=== PATIENT | female | born 1950 | race Caucasian/White ===

== ENCOUNTER 2018-12-21 17:46 | Emergency (ER) | payer SELFPAY ==
[2018-12-21] MEDS ORDERED: Ondansetron PF 4 MG/2 ML Vial ONE (18:08)
[2018-12-21] MEDS ORDERED: Morphine 4 MG/ML VIAL ONE (18:08)
[2018-12-21] MEDS ORDERED: Sodium Chloride 0.9% 1,000 ML ONE (18:08)
[2018-12-21 18:46] LABS: #Basophils 0.1 thou/uL (0.0-0.2); #Eosinphils 0.2 thou/uL (0.0-0.7); #Monocytes 0.7 thou/uL (0.11-0.59); #Neutrophils 7.6 thou/uL (1.40-6.50); %Basophils 1.1 % (0.0-1.0); %Eosinophils 2.1 % (0.0-10.0); %Lymphocytes 18.7 % (21.0-51.0); %Monocytes 6.5 % (0.0-10.0); %Neutrophils 71.6 % (42.0-75.0); Mean Corpuscular HGB CONC 32.9 g/dL (32.0-36.0); Mean Corpuscular Hemoglobin 28.4 pg (27.0-31.0); Mean Corpuscular Volume 86.3 fL (78.0-98.0); Mean Platelet Volume 6.5 fL (7.4-10.4); Platelet Count 364 thou/uL (130-400); RBC Distribution Width 11.5 % (11.5-14.5); Red Blood Cell (RBC) Count 4.57 mill/uL (4.20-5.40); White Blood Cell (WBC) Count 10.6 thou/uL (4.8-10.8)
--- NOTE | 2018-12-21 18:46 | CT ---
CT of abdomen and pelvis: 12/21/2018 COMPARISON: None HISTORY: Right upper quadrant pain TECHNIQUE: Axial CT imaging through abdomen and pelvis without contrast. Coronal reformatted imaging obtained. FINDINGS: Lack of contrast limits assessment of the viscera, bowel, vascular structures, and for lymp hadenopathy. The imaged lung bases appear unremarkable with no free intraperitoneal air or fluid seen. Limited assessment of the liver, spleen, gallbladder, pancreas, and adrenal glands unremarkable. Left kidney unremarkable, with no evidence for obstructive uropathy on the left. Urinary bladder is d ecompressed and thus, not well assessed. There is hydronephrosis and nephromegaly on the right. There is an obstructing stone at the right ure teropelvic junction measuring approximately 8 mm. No additional stone is appreciated within the right ureter. There is a hyperdense lesion along the posterior margin of the uterus measuring at least 3.7 cm. An e xophytic uterine fibroid is suspected. Recommend follow-up nonemergent pelvic ultrasound for full characterization. Limited assessment of the bowel demonstrates no acute findings. The appendix appears unremarkable. The osseous structures demonstrate no acute findings. IMPRESSION: Obstructive uropathy on the right secondary to a prominent stone at the right ureteropelv ic junction measuring approximately 8 mm. Hyperdense lesion along the posterior aspect of the uterus as detailed above.
[2018-12-21 18:49] LABS: Bilirubin Negative (Negative); Blood, Urine Large (Negative); Glucose, Urine (Dipstick) Negative (Negative); Leukocyte Negative (Negative); Nitrite Negative (Negative); Protein, Urine (Dipstick) 100 mg/dL (Neg-Trace); Urobilinogen 0.2 mg/dL (0.2-1.0); pH, Urine 5.5 (5.0-9.0)
[2018-12-21 18:52] LABS: Clarity Slightly Cloudy (Clear)
[2018-12-21 18:53] LABS: Specific Gravity, Urine 1.031 (1.002-1.036)
[2018-12-21 18:54] LABS: Bacteria/HPF 2+ HPF (None Seen); RBC/HPF 21-50 HPF (0-3)
[2018-12-21] MEDS ORDERED: HYDROmorphone 0.5 MG/0.5 ML SYRINGE ONE (18:54)
[2018-12-21] MEDS ORDERED: Prochlorperazine 10 MG/2 ML VIAL ONE (18:59)
[2018-12-21 19:02] LABS: ALT (SGPT) 14 U/L (8-55); AST (SGOT) 13 U/L (5-34); Albumin 4.1 g/dL (3.4-4.8); Alkaline Phosphatase 169 U/L (40-150); Anion Gap 14 mmol/L (10-20); BUN (Urea Nitrogen) 12 mg/dL (9.8-20.1); Bilirubin, Total 0.2 mg/dL (0.2-1.2); Calc. Creatinine Clearance 0 mL/min (70-130); Calcium 9.1 mg/dL (7.8-10.44); Carbon Dioxide 23 mmol/L (23-31); Chloride 109 mmol/L (98-107); Estimated GFR-MDRD 68; Globulin 2.9 g/dL (2.4-3.5); Glucose 111 mg/dL (80-115); Potassium 3.7 mmol/L (3.5-5.1); Sodium 142 mmol/L (136-145)
[2018-12-21] MEDS ORDERED: Ketorolac Tromethamine 30 MG/ML VIAL ONE (19:15)
[2018-12-21 19:37] LABS: Bilirubin Negative (Negative); Blood, Urine Large (Negative); Clarity Slightly Cloudy (Clear); Glucose, Urine (Dipstick) Negative (Negative); Leukocyte Negative (Negative); Nitrite Negative (Negative); Protein, Urine (Dipstick) 100 mg/dL (Neg-Trace); Urobilinogen 0.2 mg/dL (0.2-1.0)
[2018-12-21 19:39] LABS: Specific Gravity, Urine 1.033 (1.002-1.036)
[2018-12-21 19:54] LABS: RBC/HPF 21-50 HPF (0-3); Squamous Epithelial 0-3 HPF (0-3); WBC/HPF 0-3 HPF (0-3)
[2018-12-21 19:55] LABS: Bacteria/HPF 3+ HPF (None Seen); Crystals/HPF 1+ AMORPH URATES HPF (Negative)
[2018-12-21] MEDS ORDERED: Sodium Chloride 0.9% 100 ML ONE (20:31)
[2018-12-21] MEDS ORDERED: cefTRIAXone\\ROCEPHIN 1 GM VIAL ONE (20:31)
== END 2018-12-21 22:08 | disposition short-term general hospital (02) ==
LOC: MADERS 17:46
DX: N13.2 Hydronephrosis with renal and ureteral calculous obstruction (principal)
CPT/HCPCS: 36415; 51701; 74176; 80053; 81003; 81015; 85025; 86850; 86900; 86901; 87086; 96361; 96365; 96375; A4353; J0696; J0780; J1170; J1885; J2270; J2405; J3490; J7050